=== PATIENT | female | born 1945 | race Caucasian/White ===

== ENCOUNTER → 2017-03-12 | Outpatient (CLI) | payer MEDICARE, BC | LOC: MAMMO 09:50 | DX: Z12.31 Encounter for screening mammogram for malignant neoplasm of breast (principal) | CPT/HCPCS: G0202 ==

== ENCOUNTER → 2018-03-12 | Outpatient (CLI) | payer MEDICARE, BC | LOC: MAMMO 09:47 | DX: Z12.31 Encounter for screening mammogram for malignant neoplasm of breast (principal) ==

== ENCOUNTER → 2018-03-12 | Outpatient (CLI) | payer MEDICARE, BC | LOC: MAMMO 09:49 | DX: Z13.820 Encounter for screening for osteoporosis (principal); M85.80 Other specified disorders of bone density and structure, unspecified site ==

== ENCOUNTER → 2019-03-11 | Outpatient (CLI) | payer MEDICARE, BC | LOC: MAMMO 10:00 | DX: Z12.31 Encounter for screening mammogram for malignant neoplasm of breast (principal) ==

== ENCOUNTER → 2020-03-28 | Outpatient (CLI) | payer MEDICARE, BC | LOC: MSO 08:12 → LAB 08:20 | DX: Z01.812 Encounter for preprocedural laboratory examination (principal); Z20.828 Contact with and (suspected) exposure to other viral communicable diseases ==

== ENCOUNTER → 2020-03-31 | Day surgery (SDC) | payer MEDICARE, BC | LOC: MSO 12-31 10:45 | DX: Z12.11 Encounter for screening for malignant neoplasm of colon (principal); K57.30 Diverticulosis of large intestine without perforation or abscess without bleeding; I10 Essential (primary) hypertension; J45.909 Unspecified asthma, uncomplicated; E11.9 Type 2 diabetes mellitus without complications; Z79.82 Long term (current) use of aspirin | CPT/HCPCS: G0121; 00812; J2704; J7120 ==

== ENCOUNTER → 2020-08-01 | Outpatient (CLI) | payer MEDICARE, BC | LOC: MAMMO 10:26 | DX: Z12.31 Encounter for screening mammogram for malignant neoplasm of breast (principal) ==

== ENCOUNTER → 2020-08-01 | Outpatient (CLI) | payer MEDICARE, BC | LOC: RAD 10:27 → MAMMO 11:30 | DX: Z13.820 Encounter for screening for osteoporosis (principal); Z12.39 Encounter for other screening for malignant neoplasm of breast; M85.80 Other specified disorders of bone density and structure, unspecified site; M85.9 Disorder of bone density and structure, unspecified; Z78.0 Asymptomatic menopausal state ==

== ENCOUNTER → 2021-08-08 | Outpatient (CLI) | payer MEDICARE, BC | LOC: MAMMO 16:00 | DX: Z12.31 Encounter for screening mammogram for malignant neoplasm of breast (principal) ==

== ENCOUNTER → 2022-08-21 | Outpatient (CLI) | payer MEDICARE, BC | LOC: RAD 14:20 → MAMMO 14:20 | DX: M81.0 Age-related osteoporosis without current pathological fracture (principal); Z12.31 Encounter for screening mammogram for malignant neoplasm of breast ==

== ENCOUNTER → 2022-08-21 | Outpatient (CLI) | payer MEDICARE, BC | LOC: RAD 14:24 → MAMMO 15:15 | DX: Z13.820 Encounter for screening for osteoporosis (principal); M81.0 Age-related osteoporosis without current pathological fracture; M85.89 Other specified disorders of bone density and structure, multiple sites; Z78.0 Asymptomatic menopausal state ==

== ENCOUNTER 2024-09-03 15:00 | Emergency (ER) | payer MEDICARE, BC ==
[~2024-09-03] VITALS: Ht 157.5 cm; Wt 88.2 kg
[2024-09-03 15:36] LABS: BASO # 0.02 K/mm3 (0.02-0.10); EOS # 0.03 K/mm3 (0.04-0.40); EOS % 0.4 % (1.0-5.0); HEMATOCRIT 41.2 % (37.0-47.0); HEMOGLOBIN 13.4 g/dL (12.5-16.0); LYMPH# 2.95 K/mm3 (1.50-4.00); MEAN CELL VOLUME 91 fl (78-100); MEAN CORPUSCULAR HEMOGLOBIN 30 pg (27-31); MEAN CORPUSCULAR HGB CONC 33 g/dL (33-37); MEAN PLATELET VOLUME 9.6 fl (7.4-10.4); MONO # 0.54 K/mm3 (0.20-0.80); NEU # 3.55 K/mm3 (1.40-6.50); PLATELET COUNT 196 K/mm3 (130-400); RED BLOOD COUNT 4.53 M/mm3 (4.10-5.30); RED CELL DISTRIBUTION WIDTH 12.6 % (11.5-14.5); WHITE BLOOD COUNT 7.1 K/mm3 (4.8-10.8)
[2024-09-03] MEDS ORDERED: LOSARTAN POTASS1 TA2 PO (15:39)
[2024-09-03] MEDS ORDERED: METOPROLOL SUCC50 M1 PO (15:40)
[2024-09-03] MEDS ORDERED: ARNUITY EL100 MCG/Ac IH (15:40)
[2024-09-03] MEDS ORDERED: SIMVASTATIN40 M1 PO (15:40)
[2024-09-03 15:44] LABS: ALBUMIN 4.1 g/dL (3.4-4.8)
[2024-09-03 15:45] LABS: CALCIUM 9.7 mg/dL (8.3-10.5)
[2024-09-03 15:46] LABS: TOTAL PROTEIN 7.4 g/dL (6.2-8.1)
[2024-09-03 15:48] LABS: TOTAL BILIRUBIN 0.6 mg/dL (0.2-1.2)
[2024-09-03] MEDS ORDERED: Iohexol 300 - 100 ML VIAL IV ONE (16:30)
[2024-09-03 17:51] LABS: URINE APPEARANCE SLIGHTLY CLOUDY (CLEAR); URINE BILIRUBIN NEGATIVE (NEGATIVE); URINE COLOR YELLOW (YELLOW); URINE GLUCOSE NEGATIVE (NEGATIVE); URINE KETONE NEGATIVE (NEGATIVE); URINE PROTEIN(semi-quant) NEGATIVE (NEGATIVE)
[2024-09-03 17:52] VITALS: BP 159/79
[2024-09-03 17:52] LABS: URINE BLOOD NEGATIVE (NEGATIVE); URINE LEUKOCYTE ESTERASE TRACE (NEGATIVE); URINE NITRATE NEGATIVE (NEGATIVE)
== END 2024-09-03 18:00 | disposition home or self-care (01) ==
LOC: ED 15:00
PROVIDERS: Nurse Practitioner
DX: K80.20 Calculus of gallbladder without cholecystitis without obstruction (principal); K43.9 Ventral hernia without obstruction or gangrene; R61 Generalized hyperhidrosis; R42 Dizziness and giddiness
CPT/HCPCS: Q9967

== ENCOUNTER → 2024-10-23 | Outpatient (CLI) | payer MEDICARE, BC ==
[~2024-10-23] MED LIST: ARNUITY EL100 MCG/Ac IH; LOSARTAN POTASS1 TA2 PO; METOPROLOL SUCC50 M1 PO; SIMVASTATIN40 M1 PO
== END ==
LOC: MAMMO 09:30
DX: Z12.31 Encounter for screening mammogram for malignant neoplasm of breast (principal)

== ENCOUNTER → 2024-11-16 | Outpatient (CLI) | payer MEDICARE, BC | LOC: MAMMO 09:30 → RAD 09:31 | DX: Z13.820 Encounter for screening for osteoporosis (principal); Z12.31 Encounter for screening mammogram for malignant neoplasm of breast; M85.80 Other specified disorders of bone density and structure, unspecified site ==